=== PATIENT | female | born 1965 | race Caucasian/White ===

== ENCOUNTER → 2018-04-17 | Outpatient (CLI) | payer OTHER ==
[~2018-04-17] MED LIST: ADULT LOW DOSE81 MG PO; CRANBERRY200 MG PO; PRILOSEC 10MG C10 MG PO; VITAMIN B-12500 MCG PO; VITAMINC500 PO
[2018-04-17 14:11] LABS: URINE BILIRUBIN NEGATIVE (Negative); URINE BLOOD TRACE (Negative); URINE CLARITY CLEAR; URINE COLOR YELLOW; URINE GLUCOSE-RANDOM NEGATIVE (Negative); URINE KETONES NEGATIVE (Negative); URINE LEUKOCYTES-REFLEX NEGATIVE (Negative); URINE NITRITE-REFLEX NEGATIVE (Negative); URINE PROTEIN NEGATIVE (Negative); URINE SPECIFIC GRAVITY <= 1.005 (1.005-1.030); URINE UROBILINOGEN 0.2 E.U./dl (0.2-1.0)
[2018-04-17 14:18] LABS: BACTERIA-REFLEX None Seen /HPF (None Seen); CASTS None Seen /LPF (None Seen); CRYSTALS None Seen /LPF (None Seen); SQUAMOUS 0-3 Few /LPF (0-3); URINE RBC 0-2 Rare /HPF (0-2); URINE WBC-REFLEX None Seen /HPF (0-5)
--- NOTE | 2018-06-26 06:10 | PATH ---
[address] [address] PATHOLOGY RPT PROCEDURE Name: SOFIA STOKES Room: [facility]#: [id number] Admission: 04/17/18 Date of : 67 Discharge: Report #: [id number] Path Case #: [id number] Note [facility] Accession Number: [id number] TESTS RESULT FLAG UNITS REF RANGE LAB Clinician Provided Cytology Information No. of containers..01 Other (Miscellaneous) Source: URINE DIAGNOSIS: 02 URINE NEGATIVE FOR HIGH-GRADE UROTHELIAL CARCINOMA ([facility]). BENIGN UROTHELIAL CELLS ARE PRESENT. Signed out by: 02 Angel Her MD, Pathologist NPI- [id number] Performed by: 01 Jhon Lord, Industrial Machinery Mechanic ([facility]) Gross description: 01 50 ML, YELLOW, CLEAR /LCS FLAG LEGEND: L-Low Normal,H-High Normal,LL-Alert Low,HH-Alert High <-Panic Low,>-Panic High,A-Abnormal,AA-Critical Abnormal Performed at: [address] [place] [address] Otf Hammer MD, [address] [place] [address] [place] [address] Angel Her MD, Specimen Comment: A courtesy copy of this report has been sent to Specimen Comment: [phone]. Specimen Comment: A duplicate report has been generated due to demographic updates. Performed at: [address] [place] [address] [address], [place], [place] [id number] MD Otf Hammer MD Phone: [phone]
== END ==
LOC: M.LAB 13:40
PROVIDERS: Internal Medicine
DX: R31.9 Hematuria, unspecified (principal); Z79.899 Other long term (current) drug therapy; Z72.89 Other problems related to lifestyle

== ENCOUNTER → 2018-12-04 | Outpatient (CLI) | payer OTHER ==
[2018-12-04 16:41] LABS: ABSOLUTE BASOPHILS 0.1 thou/uL (0.0-0.2); ABSOLUTE EOSINOPHILS 0.3 thou/uL (0.0-0.7); ABSOLUTE LYMPHOCYTES 1.5 thou/uL (0.8-5.3); ABSOLUTE MONOCYTES 0.5 thou/uL (0.0-1.2); ABSOLUTE NEUTROPHILS 5.2 thou/uL (1.6-8.1); BASOPHILS 0.9 %; HEMATOCRIT 39.3 % (37.0-47.0); HEMOGLOBIN 13.2 gm/dL (12.0-15.0); LYMPHOCYTES 19.3 %; MCHC 33.5 g/dL (28.0-37.0); MCV 89.7 fL (80.0-100.0); MONOCYTES 6.8 %; MPV 7.6 fl. (7.2-11.1); NUCLEATED RBCS 0 /100WBC; PLATELET COUNT* 366 thou/uL (150-400); RBC 4.38 mil/uL (4.20-5.00); RDW-CV 14.4 % (10.5-14.5); WBC 7.5 thou/uL (4.0-11.0)
[2018-12-04 16:50] LABS: ALBUMIN 3.4 g/dL (3.4-5.0); ALKALINE PHOSPHATASE 94 U/L (46-116); ANION GAP 8 mmol/L (7-16); BUN 16 mg/dL (7-18); CALCIUM 8.9 mg/dL (8.5-10.1); CHLORIDE 107 mmol/L (98-107); CHOLESTEROL 229 mg/dL (<200); CO2 27 mmol/L (21-32); CREATININE 0.4 mg/dL (0.6-1.3); GLUCOSE 111 mg/dL (70-99); HDL CHOLESTEROL 53 mg/dL (>40); LDL CHOLESTEROL 151 mg/dL (<100); POTASSIUM 3.3 mmol/L (3.5-5.1); SERUM ASSESSMENT Clear; SGOT 30 U/L (15-37); SGPT 68 U/L (30-65); SODIUM 142 mmol/L (136-145); TC:HDL 4.3 Ratio (Not establshd); TOTAL BILIRUBIN 0.2 mg/dL (<0.1-1.0); TOTAL PROTEIN 7.3 g/dL (6.4-8.2); TRIGLYCERIDE 126 mg/dL (<150); VLDL 25 mg/dL (<40)
[2018-12-05 02:10] LABS: HEPATITIS B SURFACE AG Negative (Negative)
== END ==
LOC: M.RAD 15:50
PROVIDERS: Internal Medicine
DX: Z00.00 Encounter for general adult medical examination without abnormal findings (principal); M79.641 Pain in right hand; R03.0 Elevated blood-pressure reading, without diagnosis of hypertension; N39.41 Urge incontinence; G82.20 Paraplegia, unspecified; Z98.890 Other specified postprocedural states

== ENCOUNTER 2019-08-02 12:48 | Emergency (ER) | payer OTHER ==
[~2019-08-02] VITALS: Ht 167.6 cm; Wt 90.7 kg
[2019-08-02] MEDS ORDERED: COZAAR 25 MG TA25 M1 PO (13:21)
[2019-08-02] MEDS ORDERED: CLEOCIN HCL300 MG PO (15:12)
[2019-08-02 15:49] VITALS: BP 154/70
== END 2019-08-02 15:49 | disposition home or self-care (01) ==
LOC: M.ERS 12:48
DX: T25.232A Burn of second degree of left toe(s) (nail), initial encounter (principal); T31.0 Burns involving less than 10% of body surface; L03.032 Cellulitis of left toe; Z88.0 Allergy status to penicillin; Z88.2 Allergy status to sulfonamides; X16.XXXA Contact with hot heating appliances, radiators and pipes, initial encounter; Y93.89 Activity, other specified; Y92.89 Other specified places as the place of occurrence of the external cause; Y99.8 Other external cause status

== ENCOUNTER → 2020-03-07 | Outpatient (CLI) | payer OTHER ==
[~2020-03-07] MED LIST changes: +CLEOCIN HCL300 MG PO; +COZAAR 25 MG TA25 M1 PO
[2020-03-07 11:33] LABS: ABSOLUTE BASOPHILS 0.1 thou/uL (0.0-0.2); ABSOLUTE EOSINOPHILS 0.3 thou/uL (0.0-0.7); ABSOLUTE LYMPHOCYTES 1.6 thou/uL (0.8-5.3); ABSOLUTE MONOCYTES 0.4 thou/uL (0.0-1.2); ABSOLUTE NEUTROPHILS 3.4 thou/uL (1.6-8.1); BASOPHILS 1.3 %; EOSINOPHILS 4.5 %; HEMATOCRIT 40.4 % (37.0-47.0); HEMOGLOBIN 13.7 gm/dL (12.0-15.0); LYMPHOCYTES 28.2 %; MCH 30.2 pg (26.0-34.0); MCHC 33.8 g/dL (28.0-37.0); MCV 89.3 fL (80.0-100.0); MONOCYTES 7.7 %; NUCLEATED RBCS 0 /100WBC; PLATELET COUNT* 360 thou/uL (150-400); POLYS 58.3 %; RBC 4.53 mil/uL (4.20-5.00); RDW-CV 13.6 % (10.5-14.5); WBC 5.8 thou/uL (4.0-11.0)
[2020-03-07 11:46] LABS: ALBUMIN 3.6 g/dL (3.4-5.0); ALKALINE PHOSPHATASE 87 U/L (46-116); ANION GAP 8 mmol/L (7-16); BUN 12 mg/dL (7-18); CALCIUM 8.9 mg/dL (8.5-10.1); CHLORIDE 101 mmol/L (98-107); CHOLESTEROL 219 mg/dL (<200); CO2 28 mmol/L (21-32); CREATININE 0.6 mg/dL (0.6-1.3); GLUCOSE 94 mg/dL (70-99); HDL CHOLESTEROL 51 mg/dL (>40); LDL CHOLESTEROL 151 mg/dL (<100); POTASSIUM 3.5 mmol/L (3.5-5.1); SGOT 20 U/L (15-37); SGPT 42 U/L (30-65); SODIUM 137 mmol/L (136-145); TC:HDL 4.3 Ratio (Not establshd); TOTAL BILIRUBIN 0.3 mg/dL (<0.1-1.0); TOTAL PROTEIN 7.7 g/dL (6.4-8.2); TRIGLYCERIDE 87 mg/dL (<150); VLDL 17 mg/dL (<40)
[2020-03-07 11:47] LABS: SERUM ASSESSMENT Clear
[2020-03-08 17:07] LABS: HEPATITIS B SURFACE AG Negative (Negative)
== END ==
LOC: M.LAB 11:15
PROVIDERS: ATTEND Internal Medicine
DX: Z00.00 Encounter for general adult medical examination without abnormal findings (principal); K21.9 Gastro-esophageal reflux disease without esophagitis; E66.9 Obesity, unspecified; I10 Essential (primary) hypertension; N39.41 Urge incontinence; G82.20 Paraplegia, unspecified; Z68.36 Body mass index [BMI] 36.0-36.9, adult

== ENCOUNTER 2020-10-12 15:02 | Emergency (ER) | payer OTHER ==
[~2020-10-12] VITALS: Ht 170.2 cm; Wt 99.8 kg
[2020-10-12 15:41] LABS: ABSOLUTE BASOPHILS 0.1 thou/uL (0.0-0.2); ABSOLUTE EOSINOPHILS 0.3 thou/uL (0.0-0.7); ABSOLUTE MONOCYTES 0.7 thou/uL (0.0-1.2); ABSOLUTE NEUTROPHILS 4.3 thou/uL (1.6-8.1); BASOPHILS 1.5 %; EOSINOPHILS 3.6 %; HEMOGLOBIN 13.1 gm/dL (12.0-15.0); LYMPHOCYTES 26.6 %; MCH 29.7 pg (26.0-34.0); MCHC 33.6 g/dL (28.0-37.0); MCV 88.4 fL (80.0-100.0); MONOCYTES 9.9 %; NUCLEATED RBCS 0 /100WBC; PLATELET COUNT* 352 thou/uL (150-400); POLYS 58.4 %; RBC 4.41 mil/uL (4.20-5.00); RDW-CV 13.9 % (10.5-14.5); WBC 7.3 thou/uL (4.0-11.0)
[2020-10-12 15:47] LABS: CALCIUM 9.1 mg/dL (8.5-10.1); CREATININE 0.5 mg/dL (0.6-1.3); POTASSIUM 3.7 mmol/L (3.5-5.1)
[2020-10-12 15:51] LABS: ALBUMIN 3.7 g/dL (3.4-5.0); TOTAL BILIRUBIN 0.3 mg/dL (<0.1-1.0); TOTAL PROTEIN 7.5 g/dL (6.4-8.2)
[2020-10-12 16:23] LABS: URINE BILIRUBIN NEGATIVE (Negative); URINE BLOOD TRACE (Negative); URINE CLARITY CLEAR; URINE GLUCOSE-RANDOM NEGATIVE (Negative); URINE KETONES NEGATIVE (Negative); URINE LEUKOCYTES-REFLEX TRACE (Negative); URINE PROTEIN NEGATIVE (Negative); URINE SPECIFIC GRAVITY <= 1.005 (1.005-1.030); URINE UROBILINOGEN 0.2 E.U./dl (0.2-1.0)
[2020-10-12 16:25] LABS: URINE NITRITE-REFLEX POSITIVE (Negative)
[2020-10-12 16:26] LABS: URINE COLOR PALE YELLOW
[2020-10-12 16:31] LABS: BACTERIA-REFLEX >30 Many /HPF (None Seen); CASTS None Seen /LPF (None Seen); MUCUS None Seen strn/LPF (None Seen); SQUAMOUS 4-10 Moderate /LPF (0-3); URINE RBC 0-2 Rare /HPF (0-2); URINE WBC-REFLEX 0-5 Rare /HPF (0-5)
[2020-10-12 16:32] LABS: CRYSTALS None Seen /LPF (None Seen)
--- NOTE | 2020-10-12 17:41 | EKG ---
[place] [address] ELECTROCARDIOGRAM REPORT Name: SOFIA STOKES Room: [facility]#: [id number] Admission: 10/12/20 Attend Phys: Discharge: Date of : 67 Date of Service: 10/12/20 1540 Report #: [id number] THIS REPORT FOR: //name// [facility] ED Test Date: 2020-10-12 Test Time: 15:40:21 Pat Name: SOFIA GARBER Department: Room: Gender: Power Generation Engineer: : [id number] Requested By: Ramiro Gilbert Order Number: [id number] MD: Jhon Brandt Measurements Intervals [place] Rate: 72 P: 45 AL: 180 QRS: 41 QRSD: 109 T: 41 QT: 403 QTc: 442 Interpretive Statements Sinus rhythm Baseline wander in lead(s) V1 Compared to ECG 08/19/2017 14:36:52 No significant changes Electronically Signed On 10-12-2020 17:41:40 [employer] by John Brandt [email or web address] <ELECTRONICALLY SIGNED> By: John Brandt MD, FACC 10/12/20 1741 1540 1540 John Brandt MD, FAC /EPI
[2020-10-12] MEDS ORDERED: HYDROCODON-ACE1 EAC7 PO (17:52)
[2020-10-12] MEDS ORDERED: FLEXERIL PO (17:56)
[2020-10-12 18:15] VITALS: BP 148/73
== END 2020-10-12 18:16 | disposition home or self-care (01) ==
LOC: M.ERS 15:02
PROVIDERS: Family Medicine
DX: M54.5 Low back pain (principal); R10.9 Unspecified abdominal pain; M79.604 Pain in right leg; M79.605 Pain in left leg; Z98.890 Other specified postprocedural states; Z79.899 Other long term (current) drug therapy; Z88.8 Allergy status to other drugs, medicaments and biological substances; Z88.0 Allergy status to penicillin; Z88.2 Allergy status to sulfonamides

== ENCOUNTER → 2021-01-05 | Outpatient (CLI) | payer OTHER ==
[~2021-01-05] MED LIST changes: +FLEXERIL PO; +HYDROCODON-ACE1 EAC7 PO
== END ==
LOC: M.MRI 08:02
PROVIDERS: ATTEND Internal Medicine
DX: Z12.31 Encounter for screening mammogram for malignant neoplasm of breast (principal); M47.816 Spondylosis without myelopathy or radiculopathy, lumbar region; M51.36 Other intervertebral disc degeneration, lumbar region; M43.8X6 Other specified deforming dorsopathies, lumbar region

== ENCOUNTER → 2021-02-06 | Outpatient (CLI) | payer OTHER ==
[~2021-02-06] MED LIST changes: +ALEVE220 M1 PO; +AMITRIPTYLINE H10 M1 PO; +OMEPRAZOLE 20 M20 M1 PO; +TYLENOL325 M1 PO; +VITAMIN D3 PO
== END ==
LOC: M.PC 07:51
PROVIDERS: ATTEND Anesthesiology Pain Medicine
DX: M51.36 Other intervertebral disc degeneration, lumbar region (principal); M48.061 Spinal stenosis, lumbar region without neurogenic claudication; I10 Essential (primary) hypertension; Z72.89 Other problems related to lifestyle; Z88.0 Allergy status to penicillin; Z88.2 Allergy status to sulfonamides; Z88.1 Allergy status to other antibiotic agents; Z79.899 Other long term (current) drug therapy

== ENCOUNTER → 2021-03-15 | Outpatient (CLI) | payer OTHER | END | disposition home or self-care (01) | LOC: M.RAD 14:23 | PROVIDERS: ATTEND Internal Medicine | DX: M16.0 Bilateral primary osteoarthritis of hip (principal) ==

== ENCOUNTER 2021-05-10 06:57 | Inpatient (IN) | payer OTHER ==
[~2021-05-10] VITALS: Ht 167.6 cm; Wt 95.3 kg
[2021-05-10 06:58] VITALS: BP 147/89
[2021-05-10] MEDS ORDERED: HYDROCODON-ACE1 EA11 PO (08:41)
[2021-05-10 12:36] LABS: ABSOLUTE BASOPHILS 0.1 thou/uL (0.0-0.2); ABSOLUTE EOSINOPHILS 0.3 thou/uL (0.0-0.7); ABSOLUTE LYMPHOCYTES 1.8 thou/uL (0.8-5.3); ABSOLUTE MONOCYTES 0.5 thou/uL (0.0-1.2); ABSOLUTE NEUTROPHILS 5.5 thou/uL (1.6-8.1); BASOPHILS 0.9 %; EOSINOPHILS 3.5 %; HEMATOCRIT 39.1 % (37.0-47.0); HEMOGLOBIN 13.3 gm/dL (12.0-15.0); LYMPHOCYTES 21.8 %; MCH 30.4 pg (26.0-34.0); MCHC 33.9 g/dL (28.0-37.0); MCV 89.7 fL (80.0-100.0); MONOCYTES 6.2 %; MPV 6.7 fl. (7.2-11.1); NUCLEATED RBCS 0 /100WBC; PLATELET COUNT* 324 thou/uL (150-400); POLYS 67.6 %; RBC 4.36 mil/uL (4.20-5.00); RDW-CV 13.9 % (10.5-14.5); WBC 8.1 thou/uL (4.0-11.0)
[2021-05-10 12:49] LABS: ALBUMIN 3.6 g/dL (3.4-5.0); CALCIUM 8.9 mg/dL (8.5-10.1); CREATININE 0.6 mg/dL (0.6-1.3); POTASSIUM 3.7 mmol/L (3.5-5.1); TOTAL BILIRUBIN 0.4 mg/dL (<0.1-1.0); TOTAL PROTEIN 7.5 g/dL (6.4-8.2)
[2021-05-10 13:30] VITALS: BP 135/75
[2021-05-10 16:54] VITALS: BP 121/72
[2021-05-10 17:05] VITALS: BP 135/75
--- NOTE | 2021-05-10 18:07 | NUR ---
PATIENT RESTING IN BED, AT BEDSIDE INVOLVED WITH CARES. SPLINT TO LEFT ANKLE/FOOT, WRAPPED WITH LAURA BANDAGE, CAP REFILL LESS THEN 3 SECONDS. PATIENT WITH HISTORY OF PARAPLEGIC. DWYER SECURELY INPLACE TO DEPENDENT DRAINAGE. IV TO RIGHT FOREARM, PATENT. NPO AT MIDNIGHT FOR SURGERY IN THE MORNING. BED IN LOW/LOCKED POSITION. CALL LIGHT WITHIN REACH. ALL QUESTIONS AND CONCERNS ADDRESSED.
[2021-05-10 19:30] VITALS: BP 128/58
[2021-05-11] VITALS: BP 105/51
[2021-05-11 01:14] VITALS: BP 105/51
[2021-05-11 04:04] VITALS: BP 111/56
[2021-05-11 04:56] LABS: ABSOLUTE BASOPHILS 0.1 thou/uL (0.0-0.2); ABSOLUTE EOSINOPHILS 0.3 thou/uL (0.0-0.7); ABSOLUTE LYMPHOCYTES 1.9 thou/uL (0.8-5.3); ABSOLUTE MONOCYTES 0.7 thou/uL (0.0-1.2); ABSOLUTE NEUTROPHILS 3.8 thou/uL (1.6-8.1); BASOPHILS 0.9 %; EOSINOPHILS 4.7 %; HEMATOCRIT 36.4 % (37.0-47.0); HEMOGLOBIN 12.2 gm/dL (12.0-15.0); LYMPHOCYTES 27.3 %; MCH 30.3 pg (26.0-34.0); MCHC 33.5 g/dL (28.0-37.0); MCV 90.5 fL (80.0-100.0); MONOCYTES 10.9 %; MPV 7.1 fl. (7.2-11.1); NUCLEATED RBCS 0 /100WBC; PLATELET COUNT* 294 thou/uL (150-400); POLYS 56.2 %; RBC 4.02 mil/uL (4.20-5.00); RDW-CV 14.2 % (10.5-14.5); WBC 6.8 thou/uL (4.0-11.0)
[2021-05-11 05:02] LABS: CALCIUM 8.6 mg/dL (8.5-10.1); CREATININE 0.5 mg/dL (0.6-1.3); POTASSIUM 4.3 mmol/L (3.5-5.1)
--- NOTE | 2021-05-11 05:06 | NUR ---
PATIENT HAS REMAINED ALERT AND ORIENTED X 4 THROUGHOUT THE SHIFT AND RESTING QUIETLY ON HOURLY ROUNDS. BEDREST. MOVING SELF. LLE ELEVATED ON PILLOW WITH LAURA AND SPLINT INTACT. PATIENT ABLE TO FEEL TOUCH TO LLE. NPO FROM MIDNIGHT. SURGICAL CONSENT HAS BEEN SIGNED AND PRE-OP ROUTINES IN PROGRESS. MEDICATED FOR PAIN TO GOOD EFFECT X 2. ADEQUATE ORAL INTAKE AND OUTPUT BY DWYER CATHETER. PATIENT DECLINED TO COMPLETE HER USUAL BOWEL PROGRAM LAST PM SHE DOES AT HOME. VITAL SIGNS STABLE. CONTINUE TO MONITOR.
--- NOTE | 2021-05-11 06:19 | NUR ---
PATIENT TO PACU VIA BED WITH ALL RAILS UP IN STABLE CONDITION.
[2021-05-11 11:00] VITALS: BP 135/69
--- NOTE | 2021-05-11 14:52 | NUR ---
CM SPOKE TO THE PT. PT INFORMS THAT SHE HAS ALL NEEDED DME AT THIS TIME AND THAT SHE WILL CONTACT CM TO INFORM OF ADDITIONAL CM D/C PLANNING NEEDS. PT INFORMS THAT SHE WILL NEED W/C VAN TRANSPORT AT D/C. CM WILL ASSIST WITH ARRANGING W/C VAN TRANSPORT AT D/C. CM WILL REMAIN AVAILABLE TO ASSIST AND FOLLOW NEEDED.
[2021-05-11 16:00] VITALS: BP 114/82
--- NOTE | 2021-05-11 19:40 | NUR ---
PT BROUGHT BACK FROM SURGERY AT 1030 THIS AM. PT RESTING ON HER BED, CALL LIGHT WITH IN REACH. PT DENIED PAIN AT THIS TIME, ENCOURAGED PT TO NOT LET PAIN LEVEL TO GET TO ELEVATED DUE TO IT TAKES MORE MEDICATIONS TO BRING LEVEL DOWN. PT CAN TURN SELF IN BED AND WAS DOING EXERCISES IN HER BED. PT NEEDED SOME HELP TO HAVE A BOWEL MOVEMENT. RECTAL STIMULATION DONE AND ABOUT 6 MEDIUM SIZED STOOLS WERE PULLED OUT. VSS AFEBRILE. WILL CONTINUE TO MONITOR PLAN OF CARE.
[2021-05-11 20:30] VITALS: BP 131/77
[2021-05-12 05:08] LABS: HEMATOCRIT 34.4 % (37.0-47.0); HEMOGLOBIN 11.6 gm/dL (12.0-15.0); MCH 30.5 pg (26.0-34.0); MCHC 33.8 g/dL (28.0-37.0); MCV 90.4 fL (80.0-100.0); RBC 3.8 mil/uL (4.20-5.00); RDW-CV 14.1 % (10.5-14.5); WBC 7.9 thou/uL (4.0-11.0)
[2021-05-12 05:27] LABS: ALBUMIN 3.2 g/dL (3.4-5.0); CALCIUM 8.4 mg/dL (8.5-10.1); CREATININE 0.5 mg/dL (0.6-1.3); MAGNESIUM 2.1 mg/dL (1.8-2.4); TOTAL BILIRUBIN 0.4 mg/dL (<0.1-1.0); TOTAL PROTEIN 6.8 g/dL (6.4-8.2)
--- NOTE | 2021-05-12 06:47 | NUR ---
PATIENT SLEPT MOST OF THE NIGHT. IV REMAINS SALINE LOCKED. PATIENT WAS GIVEN PAIN MEDICINE TWICE. DRESSING TO LEFT ANKLE WITH BRACE REMAINS INTACT. DWYER TO DEPENDENT DRAIN. PATIENT SHOULD DC HOME TODAY. WILL CONTINUE TO MONITOR.
[2021-05-12 08:20] VITALS: BP 114/58
[2021-05-12] MEDS ORDERED: HYDROCODON-ACE1 EA11 PO (09:05)
[2021-05-12] MEDS ORDERED: HYDROCODON-ACE1 EAC7 PO (11:53)
[2021-05-12 12:02] VITALS: BP 114/58
[2021-05-12] MEDS ORDERED: MACROBID 100 M100 M3 PO (13:09)
[2021-05-12 15:38] VITALS: BP 114/58
[2021-05-12 16:00] VITALS: BP 135/74
--- NOTE | 2021-05-12 18:06 | NUR ---
PATIENT DISCHARGED TO HOME. DISCHARGE PAPERS REVIEWED AND SIGNED. PRESCRIPTIONS TRANSMITTED TO PHARMACY. PATIENT ASSISTED WITH PACKING BELONGINGS AND SBA TRANSFERING TO WHEELCHAIR. IV AND DWYER REMOVED. PATIENT DENIES ANY FURTHER NEEDS. PATIENT LEFT BY WHEELCHAIR VAN TO HOME.
[2021-05-12 18:10] VITALS: BP 114/58
== END 2021-05-12 17:45 | disposition home or self-care (01) | DRG 493 ==
LOC: M.ERS 06:57 → M.TBA-ER 09:36 → M.2W 16:54
PROVIDERS: Internal Medicine; ADMIT Internal Medicine; ATTEND Internal Medicine
PROC: 2W3RX1Z Immobilization of Left Lower Leg using Splint (ICD-10-PCS; principal; 2021-05-11)
PROC: 0QSH04Z Reposition Left Tibia with Internal Fixation Device, Open Approach (ICD-10-PCS; principal; 2021-05-11)
DX: S82.892A Other fracture of left lower leg, initial encounter for closed fracture (principal); G82.20 Paraplegia, unspecified; X58.XXXA Exposure to other specified factors, initial encounter; Y93.89 Activity, other specified; Y92.89 Other specified places as the place of occurrence of the external cause; Y99.8 Other external cause status; Z88.0 Allergy status to penicillin; Z88.2 Allergy status to sulfonamides; Z88.8 Allergy status to other drugs, medicaments and biological substances; Z98.51 Tubal ligation status; Z20.822 Contact with and (suspected) exposure to COVID-19

== ENCOUNTER → 2021-05-23 | Outpatient (CLI) | payer OTHER ==
[~2021-05-23] MED LIST changes: +HYDROCODON-ACE1 EA11 PO; +MACROBID 100 M100 M3 PO
== END ==
LOC: M.RAD 11:56
PROVIDERS: ATTEND Podiatrist Foot & Ankle Surgery
DX: S82.52XA Displaced fracture of medial malleolus of left tibia, initial encounter for closed fracture (principal); M79.89 Other specified soft tissue disorders; M85.872 Other specified disorders of bone density and structure, left ankle and foot; X58.XXXA Exposure to other specified factors, initial encounter; Y93.89 Activity, other specified; Y92.89 Other specified places as the place of occurrence of the external cause; Y99.8 Other external cause status

== ENCOUNTER → 2021-06-22 | Outpatient (CLI) | payer OTHER | LOC: M.RAD 11:23 | PROVIDERS: ATTEND Orthopaedic Surgery | DX: Z09 Encounter for follow-up examination after completed treatment for conditions other than malignant neoplasm (principal); S82.842A Displaced bimalleolar fracture of left lower leg, initial encounter for closed fracture; X58.XXXA Exposure to other specified factors, initial encounter; Y93.89 Activity, other specified; Y92.89 Other specified places as the place of occurrence of the external cause; Y99.8 Other external cause status ==

== ENCOUNTER → 2021-07-27 | Outpatient (CLI) | payer OTHER | LOC: M.RAD 13:47 | PROVIDERS: ATTEND Podiatrist Foot & Ankle Surgery | DX: Z09 Encounter for follow-up examination after completed treatment for conditions other than malignant neoplasm (principal); S82.432D Displaced oblique fracture of shaft of left fibula, subsequent encounter for closed fracture with routine healing; S82.62XD Displaced fracture of lateral malleolus of left fibula, subsequent encounter for closed fracture with routine healing; S82.52XK Displaced fracture of medial malleolus of left tibia, subsequent encounter for closed fracture with nonunion; X58.XXXD Exposure to other specified factors, subsequent encounter ==

== ENCOUNTER → 2021-08-31 | Outpatient (CLI) | payer OTHER | LOC: M.RAD 13:09 | PROVIDERS: ATTEND Podiatrist Foot & Ankle Surgery | DX: S82.55XG Nondisplaced fracture of medial malleolus of left tibia, subsequent encounter for closed fracture with delayed healing (principal); X58.XXXD Exposure to other specified factors, subsequent encounter ==

== ENCOUNTER → 2021-09-28 | Outpatient (CLI) | payer OTHER | LOC: M.RAD 13:30 | PROVIDERS: ATTEND Podiatrist Foot & Ankle Surgery | DX: Z09 Encounter for follow-up examination after completed treatment for conditions other than malignant neoplasm (principal); S82.52XA Displaced fracture of medial malleolus of left tibia, initial encounter for closed fracture; S82.842A Displaced bimalleolar fracture of left lower leg, initial encounter for closed fracture; X58.XXXA Exposure to other specified factors, initial encounter; Y93.89 Activity, other specified; Y92.89 Other specified places as the place of occurrence of the external cause; Y99.8 Other external cause status ==